=== PATIENT | female | born 2000 | race Two or more races ===

== ENCOUNTER 2023-05-02 14:36 | Emergency (ER) | payer OTHER ==
[~2023-05-02] VITALS: Ht 170.2 cm; Wt 70.3 kg
[2023-05-02 17:12] LABS: HEMATOCRIT 39.9 % (36.0-45.00); MEAN CELL VOLUME 87.2 fL (80.00-100.00); MEAN CORPUSCULAR HEMOGLOBIN 30.6 pg (27.00-32.0); MEAN CORPUSCULAR HGB CONC 35.1 g/dl (32.0-36.0); PLATELET COUNT 194 K/uL (150-450); RED BLOOD COUNT 4.58 M/uL (4.00-6.00); RED CELL DISTRIBUTION WIDTH 12.8 % (11.5-14.5)
[2023-05-02 17:44] LABS: CALCIUM 9.6 mg/dL (8.5-10.1); CREATININE SERUM 0.56 mg/dL (0.55-1.02); GFR 138.01; POTASSIUM 3.85 mEq/L (3.5-5.1)
[2023-05-02 18:04] LABS: PH,URINE 5.5 (5.0-8.0); URINE APPEARANCE Cloudy; URINE BILIRRUBIN Small (NEGATIVE); URINE BLOOD Small; URINE COLOR Dark Yellow; URINE GLUCOSE Negative (NEGATIVE); URINE LEUKOCYTE Moderate; URINE NITRATE Negative; URINE PROTEIN 30 (NEGATIVE)
[2023-05-02 18:08] LABS: URINE RBC 153.4 uL (0.0-20.8); URINE WBC 942.3 uL (0.0-23.2)
[2023-05-02 20:29] LABS: URINE BACTERIA > 9821.5 uL (0.0-1933)
[2023-05-02 20:30] LABS: URINE YEAST NEGATIVE /hpf
[2023-05-02] MEDS ORDERED: ONDANSETRON ODT8 MG PO (20:54)
[2023-05-02] MEDS ORDERED: DUI500 PO (20:54)
== END 2023-05-02 22:28 | disposition home or self-care (01) ==
LOC: ER 14:36
PROVIDERS: General Practice
DX: Z34.90 Encounter for supervision of normal pregnancy, unspecified, unspecified trimester (principal); Z3A.08 8 weeks gestation of pregnancy; R10.9 Unspecified abdominal pain; N39.0 Urinary tract infection, site not specified

== ENCOUNTER 2023-10-11 14:45 | Emergency (ER) | payer OTHER ==
[~2023-10-11] VITALS: Ht 175.3 cm; Wt 79.4 kg
[~2023-10-11 14:45] MED LIST: DUI500 PO; ONDANSETRON ODT8 MG PO
[2023-10-11] MEDS ORDERED: PRENA1 TRUE CO1 EACH (15:35)
[2023-10-11] MEDS ORDERED: DIPHENHYDRAMINE HCL 50 MG CAPSULE PO STA (19:16)
== END 2023-10-11 19:33 | disposition home or self-care (01) ==
LOC: ER 14:46
DX: R21 Rash and other nonspecific skin eruption (principal)